=== PATIENT | female | born 1980 | race Caucasian/White ===

== ENCOUNTER 2022-08-02 12:41 | Emergency (ER) | payer MEDICAID ==
[~2022-08-02] VITALS: Ht 154.9 cm; Wt 56.2 kg
[2022-08-02 12:58] VITALS: BP 169/100
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
[2022-08-02] MEDS ORDERED: BACITRACIN OINT 500 UNITS/GM PKT TP ONE (13:45)
[2022-08-02] MEDS ORDERED: IBUP-1842 PO (13:54)
[2022-08-02] MEDS ORDERED: HYDR25TA32 PO (13:54)
[2022-08-02] MEDS ORDERED: BACI-416 TP (13:54)
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
[2022-08-02 14:41] VITALS: BP 178/104
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
== END 2022-08-02 14:41 | disposition home or self-care (01) ==
LOC: MED 12:41
DX: S00.81XA Abrasion of other part of head, initial encounter (principal); I10 Essential (primary) hypertension; Z76.0 Encounter for issue of repeat prescription; Z79.899 Other long term (current) drug therapy; Y04.0XXA Assault by unarmed brawl or fight, initial encounter; Y93.89 Activity, other specified; Y92.89 Other specified places as the place of occurrence of the external cause; Y99.8 Other external cause status
CPT/HCPCS: 90471; 90715; 99283

== ENCOUNTER 2022-08-31 13:20 | Emergency (ER) | payer MEDICAID ==
[~2022-08-31] VITALS: Ht 154.9 cm; Wt 60.3 kg
[~2022-08-31 13:20] MED LIST: BACI-416 TP; HYDR25TA32 PO; IBUP-1842 PO
[2022-08-31 13:24] VITALS: BP 137/87
[2022-08-31] MEDS ORDERED: VALA1TAB2 PO (13:57)
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
== END 2022-08-31 14:16 | disposition home or self-care (01) ==
LOC: MED 13:20
DX: L98.8 Other specified disorders of the skin and subcutaneous tissue (principal); I10 Essential (primary) hypertension; Z79.899 Other long term (current) drug therapy; Z79.1 Long term (current) use of non-steroidal anti-inflammatories (NSAID); Z79.2 Long term (current) use of antibiotics
CPT/HCPCS: 99283